=== PATIENT | female | born 1985 | race Caucasian/White ===

== ENCOUNTER 2024-08-21 15:20 | Outpatient (CLI) | payer BC, SELFPAY ==
--- NOTE | ~2024-08-21 | CT_ITS ---
CT of the Abdomen and Pelvis: Indication: Abdominal mass Technique: 2.5 mm axial scans were obtained through the abdomen and pelvis following intravenous adm inistration of 100 cc of Omnipaque 350. Dose reduction technique was used on this scan by utilizing a utomated exposure control and iterative reconstruction technique. The dose-length product (DLP) was 1 188.97 mGy-cm. Findings: Scans through the lung bases no is a 5 mm left basilar pulmonary nodule (axial image 36). Additional 4 mm left lower lobe pulmonary present (axial image 9) disease. Additional calcified granu sabino are present.. The liver, spleen, pancreas, adrenals and kidneys are within normal limits. Cholecystectomy clips are present. No evidence of aortic aneurysm. No lymphadenopathy. No bowel obstruction or bowel wall thickening. There is no evidence to suggest acute appendicitis. Images through the pelvis were performed. Urinary bladder unremarkable. No pelvic mass seen. No ascit es. Impression: No abnormal mass lesion seen in the abdomen or pelvis. Subcentimeter pulmonary nodules, as above. According to Fleischner Society criteria, for a low-risk p atient, no further follow-up required. For a high-risk patient, consider 12 month follow-up CT. Reviewed, dictated and finalized at location M. Impression: No abnormal mass lesion seen in the abdomen or pelvis. Subcentimeter pulmonary nodules, as above. According to Fleischner Society crit kanu, for a low-risk patient, no further follow-up required. For a high-risk pa tient, consider 12 month follow-up CT.
[2024-08-21 15:37] LABS: Estimated Glomerular Filt Rate > 60
== END 2024-08-21 15:21 | disposition home or self-care (01) ==
PROVIDERS: PCP Registered Nurse; Visit Provider Registered Nurse
DX: R19.00 Intra-abdominal and pelvic swelling, mass and lump, unspecified site (principal)
CPT/HCPCS: 74177; Q9967